=== PATIENT | female | born 1975 | race Hispanic/Latino ===

== ENCOUNTER 2018-07-10 16:52 | Emergency (ER) | payer OTHER ==
[2018-07-10] MEDS ORDERED: LIDOCAINE 1%-EPI 1:100,000 20 ML VIAL IJ ONE (17:43)
== END 2018-07-10 17:52 | disposition home or self-care (01) ==
LOC: EDH 16:52
DX: L02.415 Cutaneous abscess of right lower limb (principal); Z98.51 Tubal ligation status; Z90.49 Acquired absence of other specified parts of digestive tract; Z98.890 Other specified postprocedural states
CPT/HCPCS: 10060; 99283; J3490

== ENCOUNTER 2022-11-24 22:21 | Emergency (ER) | payer MEDICAID ==
[~2022-11-24] VITALS: Ht 152.4 cm; Wt 59.0 kg
[2022-11-24] MEDS ORDERED: IBUPROFEN 400 MG TABLET ONE (22:54)
[2022-11-24] MEDS ORDERED: IBUPROFEN 200 MG TAB ONE (22:54)
[2022-11-24] MEDS ORDERED: IBUPROFEN 600 MG TABLET PO ONE (23:00)
[2022-11-24] MEDS ORDERED: HYDROCODONE/ACETAMINOPHEN 5/325 MG TAB PO ONE (23:00)
[2022-11-24] MEDS ORDERED: BACITRACIN 1 EACH PACKET TP ONE (23:00)
[2022-11-24] MEDS ORDERED: IBUP-2070 PO (23:51)
[2022-11-25 00:29] VITALS: BP 157/98
== END 2022-11-25 00:38 | disposition home or self-care (01) ==
LOC: EDH 22:21
DX: S80.212A Abrasion, left knee, initial encounter (principal); S80.211A Abrasion, right knee, initial encounter; S50.311A Abrasion of right elbow, initial encounter; J02.9 Acute pharyngitis, unspecified; Z90.49 Acquired absence of other specified parts of digestive tract; W18.31XA Fall on same level due to stepping on an object, initial encounter; Y93.89 Activity, other specified; Y92.89 Other specified places as the place of occurrence of the external cause; Y99.8 Other external cause status
CPT/HCPCS: 73562